=== PATIENT | male | born 1945 | race Caucasian/White ===

== ENCOUNTER 2018-11-14 11:11 | Day surgery (SDC) | payer MEDICARE ==
[~2018-11-14] VITALS: Ht 167.6 cm; Wt 91.0 kg
[2018-11-14] MEDS ORDERED: ATEN25 PO ×2 (12:00)
[2018-11-14] MEDS ORDERED: XARELTO15 MG PO (12:00)
--- NOTE | 2018-11-14 12:56 | NUR ---
PT TOLERATES YANIQUE/CARDIOVERSION WELL. NADN, VSS, PT BRADYSINUS ON MONITOR. REPEAT EKG OBTAINED. PT RESTING COMFORTABLY. CALL LIGHT WITHIN REACH. PT SON TO BEDSIDE.
== END 2018-11-14 13:00 | disposition home or self-care (01) ==
LOC: MHTC 11:11 → SURS 11:13 → MHTC 11:30
DX: I48.0 Paroxysmal atrial fibrillation (principal); I49.5 Sick sinus syndrome; I49.1 Atrial premature depolarization; R42 Dizziness and giddiness; M19.90 Unspecified osteoarthritis, unspecified site; I08.3 Combined rheumatic disorders of mitral, aortic and tricuspid valves; Z87.891 Personal history of nicotine dependence; Z79.899 Other long term (current) drug therapy
CPT/HCPCS: 92960; 93005; 93010; 93312; 93325; 99152; J2250; J3010; J7040

== ENCOUNTER 2019-09-08 05:55 | Day surgery (SDC) | payer MEDICARE, OTHER ==
[~2019-09-08 05:55] MED LIST: ATEN25 PO; XARELTO15 MG PO
[2019-09-08] MEDS ORDERED: ELIQUIS5 MG PO (06:59)
[2019-09-08] MEDS ORDERED: Flecainide Acet50 MG PO (06:59)
--- NOTE | 2019-09-08 08:21 | NUR ---
PT AND DAUGHTER VERBALIZED UNDERSTANDING OF WRITTEN AND VERBAL D/C INST. IV REMOVED. SR 65BPM ON D/C. PT TAKEN OUT OF THE [facility] VIA W/C.
== END 2019-09-08 23:00 | disposition home or self-care (01) ==
LOC: MHTC 05:55
DX: I48.0 Paroxysmal atrial fibrillation (principal); I49.5 Sick sinus syndrome; E78.5 Hyperlipidemia, unspecified; M17.11 Unilateral primary osteoarthritis, right knee; Z79.01 Long term (current) use of anticoagulants; Z79.899 Other long term (current) drug therapy; Z87.891 Personal history of nicotine dependence; Z90.49 Acquired absence of other specified parts of digestive tract
CPT/HCPCS: 92960; 93005; 93010; 99152; J2250; J3010; J7030

== ENCOUNTER 2020-08-18 15:16 | Inpatient (IN) | payer MEDICARE, SELFPAY ==
[~2020-08-18] VITALS: Ht 167.6 cm; Wt 86.7 kg
[~2020-08-18 15:16] MED LIST changes: +ELIQUIS5 MG PO; +Flecainide Acet50 MG PO
--- NOTE | 2020-08-23 08:51 | NUR ---
Ambulatory in Day Surgery History, Chart, Medications and Allergies reviewed before start of procedure. Lungs clear T/O to Auscultation. Patient confirms NPO status and agrees with scheduled surgery. Pre-Op teaching done. Pt verbalizes understanding. Patient States Post-Procedure ride home has been arranged.
--- NOTE | 2020-08-23 16:19 | NUR ---
THERAPY IN WORKING WITH PT.
--- NOTE | 2020-08-23 17:53 | NUR ---
SHIFT SUMMARY PT EATING AND DRINKING, VOIDING. PT HAS HAD ICE TO SHOULDER. PT HAS IMMOBILIZER IN PLACE. PT HAD PILLOW SUPPORTING ARM WHILE IN BED. PT BEEN UP AND WORKED WITH THERAPY BUT DID NOT CLEAR TO GO HOME TONIGHT. FAMILY BEEN TO SEE PT THIS EVENING.
--- NOTE | 2020-08-24 03:08 | NUR ---
SHIFT SUMMARY: POD 1 LEFT SHOULDER REPAIR PATIENT IS ALERT AND ORIENTED X4 WHILE AWAKE. HE BEEN ASLEEP FOR MAJORITY OF THE SHIFT BUT IS EASILY AROUSABLE. VS ARE WNL AND IS ON RA. PATIENT DENIES PAIN BUT DID RECIEVE HIS TORADOL AND TYLENOL. HE IS TOLERATING PO INTAKE AND IS VOIDING. HE IS INDEPENDANT IN THE ROOM AND HAS A STEADY GAIT WHEN GETTING UP. PATIENT CALLS APPROPRIATELY. HE IS CURRENTLY LAYING IN BED ASLEEP WITH EQUAL/EVEN RESPIRATIONS. CALL LIGHT WITHIN REACH. LEFT ARM IS IN SLING AND AQUACEL IS C/D/I. THE PLAN IS TO WORK WITH PT/OT AND TO POSSIBLY BE DISCHARGED HOME LATER.
[2020-08-24 05:47] LABS: BASOPHILS ABSOLUTE AUTO 0.01 K/mm3 (0.00-0.23); BASOPHILS PERCENT AUTO 0 % (0-2); EOSINOPHILS PERCENT AUTO 0 % (0-6); Hematocrit 36.2 % (37.0-53.0); Hemoglobin 11.7 g/dL (13.5-17.5); IMMATURE GRAN ABSOLUTE AUTO 0.07 K/mm3 (0.00-0.10); IMMATURE GRAN PERCENT AUTO 1 % (0-1); LYMPHOCYTES ABSOLUTE AUTO 1.02 K/mm3 (0.84-5.20); LYMPHOCYTES PERCENT AUTO 7 % (21-46); MONOCYTES ABSOLUTE AUTO 1.04 K/mm3 (0.16-1.47); MONOCYTES PERCENT AUTO 7 % (4-13); Mean Corpuscular HGB Conc 32.3 g/dL (31.5-36.5); Mean Corpuscular Volume 90 fL (80-100); Mean Platelet Volume 10.6 fL (9.1-12.4); NEUTROPHILS ABSOLUTE AUTO 12.05 K/mm3 (1.96-9.15); NEUTROPHILS PERCENT AUTO 85 % (41-73); Platelet Count 247 K/mm3 (150-400); RDW Standard Deviation 43.5 fL (35.1-46.3); Red Blood Cell Count 4.03 M/mm3 (4.30-5.90); White Blood Cell Count 14.19 K/mm3 (4.00-11.30)
[2020-08-24 06:11] LABS: Anion Gap 7 mmol/L (6-16); Blood Urea Nitrogen 26 mg/dL (8-24); Bun/Creatinine Ratio 28.7 (12.0-20.0); CO2, Blood 25 mmol/L (21-32); Calcium, Blood 8.6 mg/dL (8.5-10.1); Chloride, Blood 106 mmol/L (98-108); Creatinine, Blood 0.91 mg/dL (0.60-1.20); Glomerular Filtration Rate >60 (60-); Glucose, Blood 145 mg/dL (70-99); Potassium, Blood 4.6 mmol/L (3.5-5.5); Sodium, Blood 138 mmol/L (136-145)
[2020-08-24] MEDS ORDERED: Percocet 5-3251 EACH PO (08:27)
--- NOTE | 2020-08-24 10:09 | NUR ---
DC'D HOME, DC INSTRUCTIONS GIVEN, VERBALIZED UNDERSTANDING, WORKED W/ PT/OT THIS AM, DENIES ANY PAIN, IV DC'D CATH INTACT.
== END 2020-08-24 10:00 | disposition home or self-care (01) | DRG 483 ==
LOC: SURS 08-23 08:10 → PRE IP 08-23 09:45 → SURS 08-23 14:10
PROVIDERS: ADMIT Orthopaedic Surgery
PROC: 0RRK0JZ Replacement of Left Shoulder Joint with Synthetic Substitute, Open Approach (ICD-10-PCS; principal; 2020-08-23 09:45)
DX: M19.012 Primary osteoarthritis, left shoulder (principal); I48.91 Unspecified atrial fibrillation; E66.9 Obesity, unspecified; Z87.891 Personal history of nicotine dependence
CPT/HCPCS: 36415; 73030; 80048; 85025; 88300; 97110; 97162; 97166; 97530; 97535; A9270; C1776; J0690; J1100; J1885; J2250; J2370; J2405; J2704; J3010; J7120

== ENCOUNTER → 2024-08-12 | Outpatient (CLI) | payer MEDICARE ==
[~2024-08-12] MED LIST changes: +Percocet 5-3251 EACH PO
[2024-08-12 09:40] LABS: BASOPHILS ABSOLUTE AUTO 0.01 K/mm3 (0.00-0.23); BASOPHILS PERCENT AUTO 0 % (0-2); EOSINOPHILS ABSOLUTE AUTO 0.15 K/mm3 (0.00-0.68); EOSINOPHILS PERCENT AUTO 2 % (0-6); Hematocrit 42.4 % (37.0-53.0); Hemoglobin 14.7 g/dL (13.5-17.5); IMMATURE GRAN PERCENT AUTO 1 % (0-1); LYMPHOCYTES ABSOLUTE AUTO 1.43 K/mm3 (0.84-5.20); LYMPHOCYTES PERCENT AUTO 14 % (21-46); MONOCYTES ABSOLUTE AUTO 0.81 K/mm3 (0.16-1.47); MONOCYTES PERCENT AUTO 8 % (4-13); Mean Corpuscular HGB 29.7 pg (26.0-34.0); Mean Corpuscular HGB Conc 34.7 g/dL (31.5-36.5); Mean Corpuscular Volume 86 fL (80-100); Mean Platelet Volume 10.5 fL (9.1-12.4); NEUTROPHILS ABSOLUTE AUTO 7.66 K/mm3 (1.96-9.15); NEUTROPHILS PERCENT AUTO 75 % (41-73); Platelet Count 266 K/mm3 (150-400); RDW Coefficient Variation 13.2 % (11.7-14.2); Red Blood Cell Count 4.95 M/mm3 (4.30-5.90); White Blood Cell Count 10.16 K/mm3 (4.00-11.30)
[2024-08-12 09:50] LABS: Albumin, Blood 3.6 g/dL (3.4-5.0); Albumin/Globulin Ratio 1.1 (0.8-1.8); Bun/Creatinine Ratio 20.4 (12.0-20.0); Calcium, Blood 9.2 mg/dL (8.5-10.1); Creatinine, Blood 1.03 mg/dL (0.60-1.20); Globulin, Blood 3.2 g/dL (2.2-4.0); Potassium, Blood 4.2 mmol/L (3.5-5.5); Total Protein, Blood 6.8 g/dL (6.4-8.2)
== END | disposition home or self-care (01) ==
LOC: LAB 09:35 → LAB SHORT 09:35
DX: R42 Dizziness and giddiness (principal)
CPT/HCPCS: 80053; 85025

== ENCOUNTER → 2024-08-17 | Outpatient (CLI) | payer MEDICARE | LOC: LAB SHORT 12:59 → LAB 12:59 | DX: N39.0 Urinary tract infection, site not specified (principal); R42 Dizziness and giddiness | CPT/HCPCS: 87086 ==

== ENCOUNTER → 2025-05-03 | Outpatient (CLI) | payer MEDICARE ==
[2025-05-03 12:35] LABS: Creatinine, Urine Random 122.0 mg/dL (27.00-270.00); Microalb/Creat Ratio UR, Rand 5.082 mg/g (0.000-30.000); Microalbumin, Random Urine 6.2 mg/L (0.000-20.000)
== END ==
LOC: LAB SHORT 05:45 → LAB 05:45
PROVIDERS: Family Medicine
DX: E78.41 Elevated Lipoprotein(a) (principal)
CPT/HCPCS: 82043; 82570